=== PATIENT | male | born 1950 | race Caucasian/White ===

== ENCOUNTER 2022-05-03 17:34 | Emergency (ER) | payer OTHER ==
--- OUTSIDE RECORDS SUMMARY | 2022-05-03 17:38 | XMS REPORT | Continuity of Care Document ---
:1950 Author Organization [facility] t Address [address] [place] [address] Care Team Providers Name Role Phone Jose Lock Primary Care Physician Jose Lock Attending Clinician Unavailable Curtis Brock CRNA Attending Clinician Vonda Arora MD Attending Clinician Jose Lock Admitting Clinician Unavailable Payers Payer Name Policy Type Policy Number Effective Date Expiration Date S ource Problems This patient has no known problems. Allergies, Adverse Reactions, Alerts This patient has no known allergies or adverse reactions. Social History Social Habit Start Date Stop Date Quantity Comments Source Exposure to Not sure [facility] SARS-CoV-2 (event) Medica l Branch Tobacco use and 2021-09-01 2021-09-01 Never used [facility] exposure 00:00:00 00:00:00 Medical Branch Sex Ass[birth year] [facility] 00:00:00 00:00:00 Medical Branch Smoking Status Start Date Stop Date Source Never smoker [facility] Medications Ordered Filled Start Stop Current Ordering Indication Dosage Frequency Signature Comments Components Source Medication Medication Date Date Medication? Clinician (SIG) Name Name propofoL IV 2021- No Intravenou Univers infusion 09-03 s, ONCE ity of 14:01: 14:31 INTRA [place] 00 :17 PROCEDURE, Medical Starting Branch on Diann 09/03/21 at 0801, Until Diann 09/03/21 at 0831, Routine, Intra-op lidocaine 2021- No Intravenou U nivers 1% 09-03 s, ONCE ity of (XYLOCAINE) 14:00: 14:31 [place]TRA [place] 100 mg/10 00 :17 PROCEDURE, Medi cristina mL (1 %) Starting Branch injection on Diann 09/03/21 at 0800, Until Diann 09/03/21 at 0831, Routine, Intra-op lactated 2021- No IV Univers ringers IV 09-03 Infusion, ity of infusion 13:58: 14:31 [place]UOUS [place] 00 :[place] PRN, Medical Starting Branch on Diann 09/03/21 at 0758, Until Diann 09/03/21 at 0831, Routine, Intra-op lisinopriL Yes 10mg Take 10 mg U nivers 10 mg 09-03 by mouth ity of tablet 09:03: daily. [address] Branch atorvastati Yes 10mg Take 10 mg Univers n (LIPITOR) 09-03 by mouth ity of 10 mg 09:03: at [place] tablet 14 bedtime. Medical Branch metformin Yes 750mg Take 750 Uni vers ER 750 mg 1-27 mg by ity of 24 hr 09:03: mouth at [place] tablet 14 bedtime. Medical Branch Lisinopril Lisinopril 0 Yes Jose 1 tablet Common 4-22 [facility] 00:00: - [facility] MetFORMIN MetFORMIN 2018- Yes Jose 1 tablet Common HCl ER HCl ER 0-23 Lock with [facility] 00:00: evening - [facility] 00 meal [facility] Zestoretic Zestoretic Yes Jose 1 tablet Common Lock [facility] - [facility] ProAir HFA ProAir HFA Yes Jose 2 puffs as Common Lock needed [facility] - [facility] Lipitor Lipitor Yes Jose TAKE ONE Com mon Lock (1) [facility] TABLET(S) - CHI BY MOUTH St ONCE A DAY. [facility] Bicalutamid Bicalutamid Yes Jose 1 tablet Common e e Lock [facility] Tamsulosin Tamsulosin Yes Jose 1 capsule Common HCl HCl Lock [facility] Vital Signs Vital Name Observation Time Observation Value Comments Source Respiratory rate 2021-09-03 14:27:00 18 /min [facility] Procedures This patient has no known procedures. Encounters Start End Encounter Admission Attending Care Care Encounter Source Date/Time Date/Time Type Type Clinicians Facility Department ID 2021-10-20 Outpatient Lock, [facility] [id number] Common 08:10:00 Jose [facility] 2021-09-02 Outpatient Lock, [facility] [id number] Common 14:37:49 Jose [facility] 2021-09-02 Outpatient Lock, [facility] [id number] Common 13:45:09 Jose [id number] [facility] 2021-09-02 Outpatient Lock, [facility] [id number] Common 12:41:44 Jose [id number] [facility] 2021-09-02 Outpatient Lock, [facility] [id number] Common 12:30:17 Jose [id number] [facility] 2021-09-02 Outpatient Lock, [facility] [id number] Common 12:06:22 Jose [id number] [facility] 2021-09-02 Outpatient Lock, [facility] [id number] Common 11:18:54 Jose [id number] [facility] 2021-09-02 Outpatient Lock, [facility] [id number] Common 11:18:36 Jose [id number] [facility] 2021-09-02 Outpatient Lock, STLC [facility] [id number] Common 11:14:58 Jose [id number] [facility] 2021-09-02 Outpatient Lock, STLC [facility] [id number] Common 11:02:18 Jose [id number] [facility] 2021-09-02 Outpatient Lock, STLMLC [facility] [id number] Common 11:01:23 [facility] [address] [facility] 2022-04-14 2022-04-14 ambulatory STLMLC ST[facility] [id number] Common 00:00:00 00:00:00 [facility] 2022-02-10 2022-02-10 ambulatory STLMLC ST[facility] [id number] Common 00:00:00 00:00:00 [facility] 2022-02-09 2022-02-09 ambulatory STLMLC ST[facility]C [id number] Common 00:00:00 00:00:00 [facility] 2021-12-15 2021-12-15 ambulatory STLMLC ST[facility]C [id number] Common 00:00:00 00:00:00 [facility] 2021-12-15 2021-12-15 ambulatory STLMLC ST[facility] [id number] Common 00:00:00 00:00:00 [facility] 2021-10-20 2021-10-20 ambulatory STLMLC ST[facility]C [id number] Common 00:00:00 00:00:00 [facility] 2021-10-20 2021-10-20 ambulatory STLMLC ST[facility]C [id number] Common 00:00:00 00:00:00 [facility] 2021-09-03 2021-09-03 Anesthesia Curtis Brock [facility] [id number] Univers 07:58:00 08:31:00 Event AroraVonda [id number] [facility] [id number] [id number] [facility] 020 Branch 2021-08-26 2021-08-26 ambulatory STLMLC ST[facility]C [id number] Common 00:00:00 00:00:00 [facility] 2021-04-08 2021-04-08 Outpatient STLMLC ST[facility]C [id number] Common 00:00:00 00:00:00 [facility] 2021-04-07 2021-04-07 Outpatient STLMLC ST[facility]C [id number] Common 00:00:00 00:00:00 [facility] 2021-03-19 2021-03-19 Outpatient STLMLC ST[facility]C [id number] Common 00:00:00 00:00:00 [facility] 2021-03-09 2021-03-09 Outpatient STLMLC ST[facility]C [id number] Common 00:00:00 00:00:00 [facility] 2020-12-17 2020-12-17 Outpatient STLMLC ST[facility]C [id number] Common 00:00:00 00:00:00 [facility] 2020-10-24 2020-10-24 Outpatient STLMLC ST[facility]C [id number] Common 00:00:00 00:00:00 [facility] 2020-10-07 2020-10-07 Outpatient STLMLC ST[facility]C [id number] Common 00:00:00 00:00:00 [facility] 2020-09-22 2020-09-22 Outpatient STLMLC ST[facility]C [id number] Common 00:00:00 00:00:00 [facility] 2020-06-26 2020-06-26 Outpatient STLMLC ST[facility]C [id number] Common 00:00:00 00:00:00 [facility] 2020-03-26 2020-03-26 [id number] Common 16:00:00 16:00:[address] [facility] 2020-03-06 2020-03-06 [facility] [id number] Common 09:55:00 09:55:[address] [facility] 2020-02-18 2020-02-18 [facility] [id number] Common 08:27:00 08:27:[address] [facility] 2019-12-03 2019-12-03 [facility] [id number] Common 10:29:00 10:29:[address] [facility] 2019-11-28 2019-11-28 [facility] [id number] Common 08:30:00 08:30:[address] [facility] 2019-08-29 2019-08-29 [facility] [id number] Common 08:30:00 08:30:[address] [facility] 2019-05-30 2019-05-30 [facility] [id number] Common 08:30:00 08:30:[address] [facility] 2019-02-27 2019-02-27 [facility] [id number] Common 10:45:00 10:45:[address] [facility] 2018-11-30 2018-11-30 [facility] [id number] Common 08:45:00 08:45:[address] [facility] 2018-10-31 2018-10-31 [facility] [id number] Common 08:30:00 08:30:[address] [facility] 2018-09-01 2018-09-01 [facility] [id number] Common 08:45:00 08:45:[address] [facility] Results This patient has no known results.
[2022-05-03] MEDS ORDERED: MECLIZINE HCL 12.5 MG TAB ONE (19:24)
[2022-05-03 19:36] LABS: Absolute Lymphocytes (CBC) 1.5 K/uL (0.7-4.9); Hematocrit 38.8 % (39.6-49.0); Lymphocytes % 28.2 % (15.3-44.8); MCV 90.7 fL (80-100); MPV 8.8 fL (7.6-11.3); RBC Red Blood Cell Count 4.28 M/uL (4.33-5.43)
[2022-05-03 19:42] LABS: Potassium 4.1 mmol/L (3.5-5.1)
--- NOTE | 2022-05-03 20:59 | RAD REPORT ---
EXAM DESCRIPTION: CT - Head Brain Wo Cont - 05/03/2022 8:43 pm CLINICAL HISTORY: Fall, Trauma COMPARISON: No comparisons TECHNIQUE: Axial 5 mm thick images of the head were obtained without IV contrast. All CT scans are performed using dose optimization technique as appropriate and may include automated exposure control or mA/KV adjustment according to patient size. FINDINGS: No intracranial hemorrhage, mass, edema or shift of mid-line structures. No acute infarcti on changes seen. No abnormal extra-axial fluid collections. Ventricles are normal. Mastoid air cells and visualized portions of the paranasal sinuses are clear. No acute bony findings. IMPRESSION: Negative non-contrast CT head examination.
--- NOTE | 2022-05-03 21:21 | ER ---
Nurse's Notes [facility] Name: Eliel Lomeli Age: 71 yrs Sex: Male : 1950 Arrival Date: 05/03/2022 Time: 17:40 Bed 8 Private MD: Jose Lock Diagnosis: Closed Head Injury;Post-Concussive Syndrome;Fall Presentation: 05/03 18:00 Chief complaint: Chief complaint: Patient states: Tripped and fell, hit back of head, jl7 10 days ago, had a minor headache for a few days after then got the stomach virus last week and had a severe headache with dizziness, called PCP and they sent to ED to be evaluated because the dizziness is not easing up. "Sitting still I feel fine. Change in position and I feel the dizziness.". Coronavirus screen: At this time, the client does not indicate any symptoms associated with coronavirus-19. Ebola Screen: No symptoms or risks identified at this time. Initial Sepsis Screen: Does the patient meet any 2 criteria? No. Patient's initial sepsis screen is negative. Does the patient have a suspected source of infection? No. Patient's initial sepsis screen is negative. Risk Assessment: Do you want to hurt yourself or someone else? Patient reports no desire to harm self or others. Onset of symptoms was April 23, 2022. 18:00 Method Of Arrival: Ambulatory 7 18:00 Acuity: ONEIL 3 jl7 Triage Assessment: 18:05 General: Appears in no apparent distress. uncomfortable, Behavior is calm, cooperative, jl7 appropriate for age. Pain: Denies pain. Historical: - Allergies: 18:05 No Known Allergies; jl7 - Home Meds: 18:05 simvastatin 10 mg oral tab [Active]; lisinopril 10 mg Oral tab [Active]; jl7 - PMHx: 18:05 Hypertensive disorder; Diabetes mellitus; Hypercholesterolemia; jl7 - Immunization history:: Adult Immunizations unknown. - Social history:: Smoking status: Patient denies any tobacco usage or history of. Screenin:46 Abuse screen: Denies threats or abuse. Nutritional screening: No deficits noted. tw2 Tuberculosis screening: No symptoms or risk factors identified. Fall Risk Secondary diagnosis (15 points) impaired mobility. Assessment: 19:05 General: Appears in no apparent distress. uncomfortable, Behavior is calm, cooperative, jb4 appropriate for age. Pain: Denies pain. Neuro: Level of Consciousness is awake, alert, obeys commands, Oriented to person, place, time, situation, Reports dizziness, with changing position. Cardiovascular: Patient's skin is warm and dry. Respiratory: Airway is patent Respiratory effort is even, unlabored, Respiratory pattern is regular, symmetrical. GI: No signs and/or symptoms were reported involving the gastrointestinal system. : No signs and/or symptoms were reported regarding the genitourinary system. EENT: No signs and/or symptoms were reported regarding the EENT system. Derm: Skin is intact, Skin is pink, warm \\T\\ dry. Musculoskeletal: Circulation, motion, and sensation intact. Range of motion: intact in all extremities. 20:14 Reassessment: Patient appears in no apparent distress at this time. Patient and/or jb4 family updated on plan of care and expected duration. Pain level reassessed. Patient is alert, oriented x 3, equal unlabored respirations, skin warm/dry/pink. Patient states feeling better. Patient states symptoms have improved. 21:09 Reassessment: Patient appears in no apparent distress at this time. Patient and/or jb4 family updated on plan of care and expected duration. Pain level reassessed. Patient is alert, oriented x 3, equal unlabored respirations, skin warm/dry/pink. Vital Signs: 18:00 BP 149 / 82; Pulse 74; Resp 17; Temp 98.1; Pulse Ox 98% ; Weight 85.28 kg; Height 5 ft. jl7 10 in. (177.80 cm); Pain 0/10; 19:30 BP 116 / 65; Pulse 65; Resp 16; Pulse Ox 98% on R/A; jb4 21:00 BP 128 / 78; Pulse 63; Resp 16; Pulse Ox 99% on R/A; jb4 18:00 Body Mass Index 26.97 (85.28 kg, 177.80 cm) jl7 ED Course: 17:40 Patient arrived in ED. am2 17:40 Jose Lock DO is Private Physician. am2 18:05 Triage completed. jl7 18:05 Arm band placed on right wrist. jl7 18:19 Gavin Gay DO is Attending Physician. ms3 18:38 Mallory Scanlon, RN is Primary Nurse. tw2 19:30 Initial lab(s) drawn, by co, sent to lab. Inserted saline lock: 22 gauge in left ll3 antecubital area, using aseptic technique. Blood collected. 19:54 Attending Physician role handed off by Gavin Gay DO ms3 19:54 Candace Butler MD is Attending Physician. ms3 20:10 Geremias Santiago, RN is Primary Nurse. jb4 20:45 Head Brain Wo Cont In Process Unspecified. EDMS 21:20 Jose Lock DO is Referral Physician. sd2 21:35 No provider procedures requiring assistance completed. IV discontinued, intact, ll3 bleeding controlled, No redness/swelling at site. Pressure dressing applied. 21:36 Patient has correct armband on for positive identification. Placed in gown. Bed in low ll3 position. Call light in reach. Side rails up X 1. Adult w/ patient. Administered Medications: 19:29 Drug: Meclizine 50 mg Route: PO; ll3 21:36 Follow up: Response: No adverse reaction ll3 Medication: 18:46 VIS not applicable for this client. tw2 Outcome: 21:21 Discharge ordered by . sd2 21:35 Discharged to home ambulatory, with significant other. ll3 21:35 Condition: stable 21:35 Discharge instructions given to patient, significant other, Instructed on discharge instructions, follow up and referral plans. medication usage, Demonstrated understanding of instructions, follow-up care, medications, Prescriptions given X 1. 21:36 Patient left the ED. ll3 Signatures: Dispatcher [employer] EDIA Mallory Scanlon RN RN tw2 Geremias Santiago RN RN jb4 Rajiv Suero RN RN jl7 Shirley Sullivan Gavin Olivares DO DO ms3 Lester Menjivar RN RN ll3 Candace Butler MD MD sd2
--- NOTE | 2022-05-03 21:22 | EDPHYS ---
Physician Documentation [facility] Name: Eliel Lomeli Age: 71 yrs Sex: Male : 1950 Arrival Date: 05/03/2022 Time: 17:40 Bed 8 Private MD: [facility] ED Physician Candace Butler HPI: 05/03 19:47 This 71 yrs old Male presents to ER via Ambulatory with complaints of Dizziness, Fall ms3 Injury, Head Injury-Adult. 19:47 71-year-old male with past medical history of hypertension, diabetes, hyperlipidemia ms3 presents 10 days status post falling backwards and striking the back of his head. Patient states 2 days after falling he developed a stomach bug and had nausea and vomiting. Patient's main complaint today is dizziness that has been ongoing for 8 days that he feels could be from the fall. Patient denies pain at this time. Patient denies losing consciousness when he fell. Patient is not currently taking blood thinners. Patient denies alleviating factors. Patient states the dizziness is worse with movement. Historical: - Allergies: 18:05 No Known Allergies; jl7 - Home Meds: 18:05 simvastatin 10 mg oral tab [Active]; lisinopril 10 mg Oral tab [Active]; jl7 - PMHx: 18:05 Hypertensive disorder; Diabetes mellitus; Hypercholesterolemia; jl7 - Immunization history:: Adult Immunizations unknown. - Social history:: Smoking status: Patient denies any tobacco usage or history of. ROS: 19:47 Constitutional: Negative for fever, and chills. Neck: Negative for injury, pain, and ms3 swelling, Cardiovascular: Negative for chest pain, and palpitations. Respiratory: Negative for shortness of breath, cough, wheezing, and pleuritic chest pain, Abdomen/GI: Negative for abdominal pain, nausea, vomiting, diarrhea, and constipation. 19:47 Skin: Negative for injury, rash, and discoloration. 19:47 Neuro: Positive for dizziness. 19:47 All other systems are negative. Exam: 19:47 Constitutional: This is a well developed, well nourished patient who is awake, alert, ms3 and in no acute distress. Head/Face: Normocephalic, atraumatic. Neck: Trachea midline, no cervical lymphadenopathy. Supple, full range of motion without nuchal rigidity, or vertebral point tenderness. No Meningismus. Chest/axilla: Normal chest wall appearance and motion. Nontender with no deformity. Cardiovascular: Regular rate and rhythm with a normal S1 and S2. No gallops, murmurs, or rubs. Normal PMI, no JVD. No pulse deficits. Respiratory: Lungs have equal breath sounds bilaterally, clear to auscultation and percussion. No rales, rhonchi or wheezes noted. No increased work of breathing, no retractions or nasal flaring. Abdomen/GI: Soft, non-tender, with normal bowel sounds. No distension or tympany. No guarding or rebound. No evidence of tenderness throughout. Skin: Warm, dry with normal turgor. Normal color with no rashes, no lesions, and no evidence of cellulitis. MS/ Extremity: Pulses equal, no cyanosis. Neurovascular intact. Full, normal range of motion. Neuro: Awake and alert, GCS 15, oriented to person, place, time, and situation. Cranial nerves II-XII grossly intact. Motor strength 5/5 in all extremities. Sensory grossly intact. Cerebellar exam normal. Normal gait. Vital Signs: 18:00 BP 149 / 82; Pulse 74; Resp 17; Temp 98.1; Pulse Ox 98% ; Weight 85.28 kg; Height 5 ft. jl7 10 in. (177.80 cm); Pain 0/10; 19:30 BP 116 / 65; Pulse 65; Resp 16; Pulse Ox 98% on R/A; jb4 21:00 BP 128 / 78; Pulse 63; Resp 16; Pulse Ox 99% on R/A; jb4 18:00 Body Mass Index 26.97 (85.28 kg, 177.80 cm) jl7 MDM: 19:01 Patient medically screened. ms3 19:47 Data reviewed: vital signs, nurses notes. ms3 19:53 Transition of care: After a detail discussion of the patient's case, care is ms3 transferred to Candace Butler MD. 21:19 Data reviewed: lab test result(s), radiologic studies. Counseling: I had a detailed sd2 discussion with the patient and/or guardian regarding: the historical points, exam findings, and any diagnostic results supporting the discharge/admit diagnosis, lab results, radiology results, the need for outpatient follow up, to return to the emergency department if symptoms worsen or persist or if there are any questions or concerns that arise at home. ED course: Labs and imaging reviewed. CT head with no acute abnormalities. Pt feeling improved after Meclizine. Ambulatory without difficulty. No focal neuro deficits. Given concussion precautions. Will follow up with PCP regarding his head injury. Pt and verbalize understanding of discharge plan and strict return precautions.. 05/03 19:02 Order name: CBC with Diff; Complete Time: 19:45 ms3 05/03 19:02 Order name: BMP; Complete Time: 19:45 ms3 05/03 19:05 Order name: IV; Complete Time: 19:21 tw2 05/03 20:02 Order name: Head Brain Wo Cont; Complete Time: 21:07 EDMS Administered Medications: 19:29 Drug: Meclizine 50 mg Route: PO; ll3 21:36 Follow up: Response: No adverse reaction ll3 Disposition Summary: 05/03/22 21:21 Discharge Ordered Location: Home sd2 Problem: new sd2 Symptoms: have improved sd2 Condition: Stable sd2 Diagnosis - Closed Head Injury sd2 - Post-Concussive Syndrome sd2 - Fall sd2 Followup: sd2 - With: Jose Lock DO - When: 2 - 3 days - Reason: Recheck today's complaints, Continuance of care, Re-evaluation by your physician Discharge Instructions: - Discharge Summary Sheet sd2 - Concussion, Adult sd2 - Head Injury, Adult sd2 - Post-Concussion Syndrome sd2 Forms: - Medication Reconciliation Form sd2 - Thank You Letter sd2 - Antibiotic Education sd2 - Prescription Opioid Use sd2 Prescriptions: - Meclizine 25 mg Oral Tablet - take 1 tablet by ORAL route every 8 hours As needed As needed for dizziness; 20 sd2 tablet; Refills: 0, Product Selection Permitted Signatures: Dispatcher [employer] EDMS Mallory Scanlon RN RN tw2 Rajiv Suero RN RN jl7 Gavin Gay DO DO ms3 Lester Menjivar RN RN ll3 Candace Butler MD MD sd2 Corrections: (The following items were deleted from the chart) 20:02 19:55 CT-HEAD/BRAIN W/O CONTRAST ordered. EDMS EDMS
== END 2022-05-03 21:36 | disposition home or self-care (01) ==
LOC: ER 17:34
DX: S09.90XA Unspecified injury of head, initial encounter (principal); F07.81 Postconcussional syndrome; W18.30XA Fall on same level, unspecified, initial encounter; E11.9 Type 2 diabetes mellitus without complications; I10 Essential (primary) hypertension
CPT/HCPCS: 85025; 80048; 36415; 70450; J8597; 99284